=== PATIENT | female | born 1980 | race Caucasian/White ===

== ENCOUNTER → 2016-04-21 | Outpatient (CLI) | payer OTHER ==
[~2016-04-21] VITALS: Ht 167.6 cm; Wt 114.7 kg
[~2016-04-21] MED LIST: ADV250 IH; ALBU8HFA IH; BECL8.7A5 IH; DIVA500T35 PO; LEVO25TA4 PO; MONT10TA21 PO; OMEP20 PO; PANT40TA25 PO; PREM125 PO; QUET200T PO; QUET25TA PO; THEO100T25 PO; TOPI100 PO; ZIPR40CA2 PO; ZIPR80CA2 PO
[2016-04-21 14:01] VITALS: BP 115/71
== END | disposition home or self-care (01) ==
LOC: HBOWC 11:44
PROVIDERS: ATTEND Emergency Medicine
DX: L97.821 Non-pressure chronic ulcer of other part of left lower leg limited to breakdown of skin (principal); J45.909 Unspecified asthma, uncomplicated; E66.9 Obesity, unspecified; F31.9 Bipolar disorder, unspecified; Z87.891 Personal history of nicotine dependence
CPT/HCPCS: 97597

== ENCOUNTER → 2016-05-01 | Outpatient (CLI) | payer OTHER ==
[2016-05-01 12:06] VITALS: BP 93/60
== END | disposition home or self-care (01) ==
LOC: HBOWC 11:07
PROVIDERS: ATTEND Emergency Medicine
DX: L97.821 Non-pressure chronic ulcer of other part of left lower leg limited to breakdown of skin (principal); F31.9 Bipolar disorder, unspecified; E66.9 Obesity, unspecified; J45.909 Unspecified asthma, uncomplicated; Z87.891 Personal history of nicotine dependence
CPT/HCPCS: 97597

== ENCOUNTER → 2016-05-03 | Outpatient (CLI) | payer OTHER | END | disposition home or self-care (01) | LOC: RADPV 08:16 | PROVIDERS: ATTEND Emergency Medicine | DX: L97.829 Non-pressure chronic ulcer of other part of left lower leg with unspecified severity (principal); M79.605 Pain in left leg | CPT/HCPCS: 93880; 93925 ==

== ENCOUNTER → 2016-05-15 | Outpatient (CLI) | payer OTHER ==
[2016-05-15 10:41] VITALS: BP 93/67
[2016-05-15 10:42] VITALS: BP 119/96
== END | disposition home or self-care (01) ==
LOC: HBOWC 09:54
PROVIDERS: ATTEND Emergency Medicine
DX: S81.802D Unspecified open wound, left lower leg, subsequent encounter (principal); D23.9 Other benign neoplasm of skin, unspecified; X58.XXXD Exposure to other specified factors, subsequent encounter